=== PATIENT | male | born 1980 | race African-American/Black ===

== ENCOUNTER 2020-10-05 22:24 | Emergency (ER) | payer BC, SELFPAY ==
[2020-10-05 23:19] LABS: #Basophils 0.1 10x3/uL (0.0-0.2); #Eosinphils 0.1 10x3/uL (0.0-0.5); #Monocytes 0.5 10x3/uL (0.0-1.1); %Basophils 0.9 % (0.0-2.0); %Eosinophils 1.3 % (0.0-6.0); %Lymphocytes 25.7 % (18.0-47.0); %Monocytes 5.9 % (0.0-10.0); %Neutrophils 65.8 % (40.0-75.0); Hemoglobin 14.6 g/dL (13.5-17.5); Mean Corpuscular HGB CONC 31.8 g/dL (32.0-36.0); Mean Corpuscular Hemoglobin 29.4 pg (27.0-33.0); Mean Corpuscular Volume 92.4 fl (81.2-95.1); Mean Platelet Volume 10.3 fl (7.4-10.4); Platelet Count 267 10x3/uL (150-450); RBC Distribution Width 14.2 % (11.5-14.5); Red Blood Cell (RBC) Count 4.97 10x6/uL (4.32-5.72); White Blood Cell (WBC) Count 9.1 10x3/uL (3.5-10.5)
[2020-10-05 23:29] LABS: ALT (SGPT) 39 U/L (8-55); AST (SGOT) 32 U/L (5-34); Albumin 4.6 g/dL (3.5-5.0); Alkaline Phosphatase 84 U/L (40-110); Anion Gap 14 mmol/L (10-20); BUN (Urea Nitrogen) 14 mg/dL (8.9-20.6); Bilirubin, Total 0.6 mg/dL (0.2-1.2); Calc. Creatinine Clearance 0 mL/min (70-130); Calcium 9.4 mg/dL (7.8-10.44); Carbon Dioxide 25 mmol/L (22-29); Chloride 103 mmol/L (98-107); Globulin 3.8 g/dL (2.4-3.5); Glucose 104 mg/dL (70-105); Potassium 3.8 mmol/L (3.5-5.1); Protein, Total 8.4 g/dL (6.0-8.3); Sodium 138 mmol/L (136-145)
[2020-10-06 01:14] LABS: Troponin I Less than 0.010 ng/mL (< 0.028)
== END 2020-10-06 01:22 ==
LOC: CSHERS 22:24
DX: R07.89 Other chest pain (principal); R51.9 Headache, unspecified; F17.210 Nicotine dependence, cigarettes, uncomplicated
CPT/HCPCS: 36415; 71045; 80053; 84484; 85025; 93005